=== PATIENT | female | born 1940 | race Caucasian/White ===

== ENCOUNTER 2016-12-21 14:06 | Emergency (ER) | payer OTHER ==
[~2016-12-21] VITALS: Ht 168.9 cm; Wt 86.0 kg
[2016-12-21 14:23] VITALS: TEMP 36.9; Ht 168.9 cm; Wt 86.0 kg
[2016-12-21] MEDS ORDERED: SODIUM CHLORIDE 0.9% 1000ML 1,000 ML IV STA (14:56)
[2016-12-21 15:24] LABS: BASO % 0.4 %; BASO ABS # 0.03 K/uL (0-0.2); COMPLETE YES; EOS % 2.3 %; HEMATOCRIT 38.4 % (37-47); IG% 0.3 %; LYMPH % 11.8 %; LYMPH ABS # 0.93 K/uL (1.2-3.4); MEAN CELL VOLUME 92.3 fL (80-100); MEAN CORPUSCULAR HEMOGLOBIN 31.5 pg (25-34); MEAN CORPUSCULAR HGB CONC 34.1 g/dl (32-36); MEAN PLATELET VOLUME 9.9 fL (7.4-10.4); MONO % 8.5 %; NEUT % 76.7 %; PLATELET COUNT 302 K/uL (130-400); RED BLOOD COUNT 4.16 M/uL (4.2-5.4); WHITE BLOOD COUNT 7.86 K/uL (4.8-10.8)
[2016-12-21] MEDS ORDERED: CARV25TA2 PO (15:30)
[2016-12-21] MEDS ORDERED: AMLO-114 PO (15:30)
[2016-12-21] MEDS ORDERED: BENA1TAB53 PO (15:30)
[2016-12-21 15:41] LABS: BUN/CREATININE RATIO 28.9 (10-20); CALCIUM 8.9 mg/dl (8.5-10.1); CREATININE 0.71 mg/dl (0.60-1.20)
--- NOTE | 2016-12-21 16:48 | DIAGNOSTIC IMAGING REPORT ---
CT NECK WITH INTRAVENOUS CONTRAST HISTORY: right jaw and neck swelling TECHNIQUE: Multiaxial CT images of the neck were performed following the use of intravenous contrast. COMPARISON STUDY: None. FINDINGS: There is enlargement, increased/heterogeneous enhancement, and adjacent fat stranding surrounding the right parotid gland. This is most pronounced within the inferior aspect of the right parotid gland. This is consistent with a parotiditis. There are few punctate stones within the bilateral parotid glands. However, the parotid ducts are normal in caliber. There is also mild edema and thickening within the right sternocleidomastoid muscle in comparison to the left. A few mildly enlarged right cervical lymph nodes. Mild emphysema. Degenerative changes within the cervical spine. The paranasal sinuses and mastoid air cells are clear. Mild calcified plaque within the right carotid bulb. No significant stenosis within the carotid or vertebral arteries. The internal jugular veins are patent. The submandibular glands are symmetric. The orbits and visualized brain parenchyma are unremarkable. The epiglottis and prevertebral soft tissues are within normal limits. The major mucosal airway surfaces are intact. The thyroid gland enhances normally. IMPRESSION: 1. Asymmetric enlargement and heterogeneous enhancement within the right parotid gland with associated surrounding fat stranding. This is consistent with a parotiditis. 2. A few mildly enlarged right cervical lymph nodes. There is also mild edema and thickening within the right sternocleidomastoid muscle in comparison to the left. This is likely reactive. 3. A few punctate stones within the bilateral parotid glands. However, the parotid gland ducts are normal and caliber. 4. Additional findings as described above. Electronically signed by: Mando Johnson M.D. 12/21/2016 4:46 PM Dictated Date/Time: 12/21/2016 4:40 PM
[2016-12-21] MEDS ORDERED: METRONIDAZOLE 250 MG TAB PO STA (17:26)
[2016-12-21] MEDS ORDERED: CEFDINIR 300 MG CAP PO SCH (17:26)
[2016-12-21] MEDS ORDERED: CEFDINIR 250 MG/5 ML 60 ML PO STA (17:26)
[2016-12-21] MEDS ORDERED: CEFD300C2 PO (18:04)
[2016-12-21] MEDS ORDERED: METR-163 PO (18:04)
[2016-12-21 18:10] VITALS: BP 145/81; PULSE 81; O2SAT 96
--- NOTE | 2016-12-21 23:52 | EMERGENCY ROOM VISIT NOTE ---
History Report prepared by Aubrie: Eva Gr Under the Supervision of: Dr. Bret Camacho M.D. First contact with patient: 14:49 Chief Complaint: INFECTION Stated Complaint: SWELLING IN JAW/ABSCESS TOOTH Nursing Triage Summary: pt reports swelling in R side of neck 12/15 and was started on an abx , the pain has gotten worse since taking it , today PCP sent in to have abcess drained History of Present Illness The patient is a 76 year old female who presents to the Emergency Room with complaints of a worsening infection to the right side of her neck and jaw beginning 6 days ago. The patient states that she initially thought that she had an infection in one of her molars because she has had issues with that tooth in the past. She went to see her dentist and he determined that it was an abscess and not a problem with her teeth. He started the patient on clindamycin. She took 2 days of the antibiotic and stopped taking it because she states that her pain and swelling worsened. The patient called her son who is a marketing copywriter and he advised her to stop taking the medication because he was concerned for the GI side effects. She has not started a new antibiotic. The patient had an appointment with her PCP earlier today and he confirmed that she had an abscess. He sent her to the ED for further treatment. The patient notes pain and swelling to the right side of her neck. She rates her current pain as a 7/10 in severity. She has been taking Advil for her symptoms and it has been helping. She notes occasional itchiness of the area. The patient denies any difficulty swallowing. Pt denies LOC, headache, fevers, chills, diaphoresis, visual changes, chest pain, breathing difficulties, nausea, vomiting, abdominal pain, back pain, melena, hematochezia, urinary symptoms, numbness, weakness, lymphadenopathy, rash, or other complaints. Source of History: patient Onset: 6 days ago Position: jaw, neck Symptom Intensity: 7/10 Quality: other (infection) Timing: worsening Modifying Factors (Worsening): other (clindamycin) Modifying Factors (Relieving): ibuprofen Review of Systems See HPI for pertinent positives and negatives. A total of ten systems were reviewed and were otherwise negative. Past Medical & Surgical Medical Problems: (1) Cellulitis and abscess of leg (2) Hypertension (3) Penicillin allergy Family History Hypertension Social History Smoking Status: Former Smoker Current/Historical Medications Scheduled Amlodipine (Norvasc), 10 MG PO QPM Benazepril (Lotensin), 40 MG PO QPM Carvedilol (Coreg), 25 MG PO QPM Cefdinir (Omnicef), 2 CAP PO DAILY Metronidazole (Flagyl), 500 MG PO TID Allergies Coded Allergies: Levofloxacin (Verified Allergy, Intermediate, hives, 12/21/16) Penicillins (Verified Allergy, Intermediate, hives, 12/21/16) Physical Exam Vital Signs Date Time Temp Pulse Resp B/P Pulse Ox O2 Delivery O2 Flow Rate FiO2 12/21/16 18:10 81 18 145/81 96 Room Air 12/21/16 17:18 77 18 144/93 96 Room Air 12/21/16 15:46 72 18 151/97 96 Room Air 12/21/16 14:23 36.9 83 20 155/84 94 Room Air Physical Exam GENERAL: Awake, alert, well-appearing, in no distress HENT: Normocephalic, atraumatic. Swelling, induration, and tenderness of the right lower jaw. Oropharynx unremarkable. EYES: Normal conjunctiva. Sclera non-icteric. NECK: Supple. No nuchal rigidity. FROM. No JVD. RESPIRATORY: Clear to auscultation. CARDIAC: Regular rate, normal rhythm. Extremities warm and well perfused. Pulses equal. ABDOMEN: Soft, non-distended. No tenderness to palpation. No rebound or guarding. No masses. RECTAL: Deferred. MUSCULOSKELETAL: Chest examination reveals no tenderness. The back is symmetrical on inspection without obvious abnormality. There is no CVA tenderness to palpation. No joint edema. LOWER EXTREMITIES: Calves are equal size bilaterally and non-tender. 2+ edema bilaterally. No discoloration. NEURO: Normal sensorium. No sensory or motor deficits noted. SKIN: No rash or jaundice noted. Medical Decision & Procedures ER Provider Diagnostic Interpretation: Radiology results as stated below per my review and radiologist interpretation: CT NECK WITH INTRAVENOUS CONTRAST HISTORY: right jaw and neck swelling TECHNIQUE: Multiaxial CT images of the neck were performed following the use of intravenous contrast. COMPARISON STUDY: None. FINDINGS: There is enlargement, increased/heterogeneous enhancement, and adjacent fat stranding surrounding the right parotid gland. This is most pronounced within the inferior aspect of the right parotid gland. This is consistent with a parotiditis. There are few punctate stones within the bilateral parotid glands. However, the parotid ducts are normal in caliber. There is also mild edema and thickening within the right sternocleidomastoid muscle in comparison to the left. A few mildly enlarged right cervical lymph nodes. Mild emphysema. Degenerative changes within the cervical spine. The paranasal sinuses and mastoid air cells are clear. Mild calcified plaque within the right carotid bulb. No significant stenosis within the carotid or vertebral arteries. The internal jugular veins are patent. The submandibular glands are symmetric. The orbits and visualized brain parenchyma are unremarkable. The epiglottis and prevertebral soft tissues are within normal limits. The major mucosal airway surfaces are intact. The thyroid gland enhances normally. IMPRESSION: 1. Asymmetric enlargement and heterogeneous enhancement within the right parotid gland with associated surrounding fat stranding. This is consistent with a parotiditis. 2. A few mildly enlarged right cervical lymph nodes. There is also mild edema and thickening within the right sternocleidomastoid muscle in comparison to the left. This is likely reactive. 3. A few punctate stones within the bilateral parotid glands. However, the parotid gland ducts are normal and caliber. 4. Additional findings as described above. Electronically signed by: Mando Johnson M.D. 12/21/2016 4:46 PM Dictated Date/Time: 12/21/2016 4:40 PM Laboratory Results 12/21/16 15:15 Red Blood Count 4.16, Mean Corpuscular Volume 92.3, Mean Corpuscular Hemoglobin 31.5, Mean Corpuscular Hemoglobin Concent 34.1, Mean Platelet Volume 9.9, Neutrophils (%) (Auto) 76.7, Lymphocytes (%) (Auto) 11.8, Monocytes (%) (Auto) 8.5, Eosinophils (%) (Auto) 2.3, Basophils (%) (Auto) 0.4, Neutrophils # (Auto) 6.03, Lymphocytes # (Auto) 0.93, Monocytes # (Auto) 0.67, Eosinophils # (Auto) 0.18, Basophils # (Auto) 0.03 12/21/16 15:15 Test 12/21/16 15:10 12/21/16 15:15 White Blood Count 7.86 K/uL (4.8-10.8) Red Blood Count 4.16 M/uL (4.2-5.4) Hemoglobin 13.1 g/dL (12.0-16.0) Hematocrit 38.4 % (37-47) Mean Corpuscular Volume 92.3 fL (80-100) Mean Corpuscular Hemoglobin 31.5 pg (25-34) Mean Corpuscular Hemoglobin Concent 34.1 g/dl (32-36) Platelet Count 302 K/uL (130-400) Mean Platelet Volume 9.9 fL (7.4-10.4) Neutrophils (%) (Auto) 76.7 % Lymphocytes (%) (Auto) 11.8 % Monocytes (%) (Auto) 8.5 % Eosinophils (%) (Auto) 2.3 % Basophils (%) (Auto) 0.4 % Neutrophils # (Auto) 6.03 K/uL (1.4-6.5) Lymphocytes # (Auto) 0.93 K/uL (1.2-3.4) Monocytes # (Auto) 0.67 K/uL (0.11-0.59) Eosinophils # (Auto) 0.18 K/uL (0-0.5) Basophils # (Auto) 0.03 K/uL (0-0.2) RDW Standard Deviation 44.4 fL (36.4-46.3) RDW Coefficient of Variation 13.1 % (11.5-14.5) Immature Granulocyte % (Auto) 0.3 % Immature Granulocyte # (Auto) 0.02 K/uL (0.00-0.02) Anion Gap 7.0 mmol/L (3-11) Est Creatinine Clear Calc Drug Dose 75.2 ml/min Estimated GFR () 95.9 Estimated GFR (Non- 82.7 BUN/Creatinine Ratio 28.9 (10-20) Calcium Level 8.9 mg/dl (8.5-10.1) Laboratory results reviewed by me Medications Administered Medications (Trade) Dose Ordered Sig/Yaw Route Start Time Stop Time Status Last Admin Dose Admin Sodium Chloride (Nss 1000ml) 1,000 ml @ 999 mls/hr Q1H1M STAT IV 12/21/16 14:56 12/21/16 15:56 DC 12/21/16 14:56 999 MLS/HR Metronidazole (Flagyl Tab) 500 mg NOW STAT PO 12/21/16 17:26 12/21/16 17:29 DC 12/21/16 17:54 500 MG Cefdinir (Cefdinir) 300 mg 1726 PO 12/21/16 17:26 12/21/16 18:00 DC 12/21/16 18:10 300 MG ED Course 1449: The patient was evaluated in room C8. A complete history and physical exam was performed. 1456: NSS 1000 ml @ 999 mls/hr IV 1722: I reassessed the patient at this time. She is feeling better and resting comfortably. I discussed the results and treatment plan with the patient. I answered all pertaining questions that she had. She expressed understanding and verbalized agreement. The patient will be discharged home after receiving IV antibiotics. 1726: Cefdinir 300 mg PO, Flagyl 500 mg PO Medical Decision Triage Nursing notes reviewed and agree them. The patient's history was concerning for facial pain and swelling concerning for abscess Differential diagnosis: Etiologies such as facial abscess, parotitis, salivary duct obstruction, malignancy, mononucleosis, dental abscess, peritonsillar abscess, viral syndrome , as well as others were entertained. ER treatment provided: The patient was hydrated On reassessment the patient felt better. Oral Omnicef Oral metronidazole Diagnostics interpreted by me: The labs revealed an unremarkable CBC and chemistry panel. Mumps titer pending. Imaging studies: CT scan as above The patient has a parotitis. There is no abscess for drainage. The patient was treated with Omnicef and metronidazole. These are the only antibiotic choices that he provide coverage for her that she can take without issues because of her allergies and the fact that she failed clindamycin. I did tell her that if symptoms worsen despite treatment she may need to come back to the Emergency Room. I did ask for her to have follow-up with ENT. The patient wishes to follow up with her primary physician first and then if necessary can be referred to [facility]. I gave my usual and customary discussion regarding this issue. By the evaluation outlined above emergent etiologies such as peritonsillar abscess, retropharyngeal abscess, otitis, pneumonia, meningitis, retropharyngeal abscess, Lukas angina, sepsis, bacteremia, as well as others were deemed relatively unlikely. The patient was informed about the findings as listed above. All questions were answered and she was pleased with the treatment. Return instructions were outlined and the patient was discharged in stable condition. Outpatient prescription management: Omnicef Metronidazole Referral: The patient was referred back to her primary care physician for follow-up in 2 to 3 days for a recheck of the current condition. The chart was completed utilizing [employer] Speech voice recognition software. Grammatical errors, random word insertions, pronoun errors, and incomplete sentences are an occasional consequence of this system due to software limitations, ambient noise, and hardware issues. Any formal questions or concerns about the content, text, or information contained within the body of this dictation should be directly addressed to the physician for clarification. Impression Primary Impression: Parotitis Scribe Attestation The scribe's documentation has been prepared under my direction and personally reviewed by me in its entirety. I confirm that the note above accurately reflects all work, treatment, procedures, and medical decision making performed by me. Departure Information Dispostion Home / Self-Care Prescriptions Cefdinir (OMNICEF) 300 Mg Cap 2 CAP PO DAILY for 10 Days, #19 CAP Prov: Bret Camacho MD 12/21/16 Metronidazole (Flagyl) 500 Mg Tab 500 MG PO TID, #19 TAB Prov: Bret Camacho MD 12/21/16 Referrals Kenn Delong D.O. (PCP) Forms HOME CARE DOCUMENTATION FORM, IMPORTANT VISIT INFORMATION, WORK / SCHOOL INSTRUCTIONS Patient Instructions My [facility] Additional Instructions Metronidazole(Flagyl) 500mg: Take one pill twice daily for 10 days for your parotid gland infection. DO NOT drink alcohol or take alcohol containing products with this medication. Any medication can cause an allergic reaction, stop the pills immediately and return to the ER for rash, hives, breathing difficulties, or swelling. Omnicef (Cefdinir) 300mg: Take one pill 2 times daily for 10 days for your parotid gland infection. All antibiotics can cause diarrhea. If this occurs and you feel worse or it does not resolve in 1-2 days follow up with your doctor or return to the Emergency Department as this could be signs of serious underlying problems. Any medication can cause an allergic reaction, stop the pills immediately and return to the ER for rash, hives, breathing difficulties, or swelling. Acetaminophen(Tylenol) may be used for fever or pain. Use 1000mg every six hours as needed. Avoid using more than 4000mg in a 24 hour period. Warm compresses to the affected area 4 times daily for 15-20 minutes. Sour candies as discussed every 1-2 hours to promote saliva production. Rest and drink plenty of fluids. Continue current medications. Return to the ER for severe pain, persistent fevers, spreading redness, tongue or mouth swelling, or any worsening of your condition. Follow up with your primary physician within 2 days for a recheck of the current condition. If you're not improving you need to have a follow-up with ENT at the [facility].
[2016-12-25 17:59] LABS: MUMPS VIRUS ANTIBODY IGM <1:20
== END 2016-12-21 18:20 | disposition home or self-care (01) ==
LOC: C.EDB 14:10 → C.EDC 18:20
DX: K11.20 Sialoadenitis, unspecified (principal); I10 Essential (primary) hypertension; Z87.891 Personal history of nicotine dependence; Z79.899 Other long term (current) drug therapy